=== PATIENT | male | born 1940 | race Caucasian/White ===

== ENCOUNTER → 2016-12-09 | Outpatient (CLI) | payer MEDICARE, BC ==
[~2016-12-09] MED LIST: ADULT LOW DOSE81 MG PO; AMBIEN10 MG PO; LISINOPRIL10 MG PO; LOPRESSOR 550 MG/TAB PO; LOSARTAN POTASS50 MG PO; LOVASTATIN40 M1 PO; ZYRTEC ALLERGY10 MG PO
[2016-12-09 10:31] VITALS: BP 164/93
== END ==
LOC: AMSURD 10:19
DX: R07.9 Chest pain, unspecified (principal)

== ENCOUNTER → 2017-01-25 | Outpatient (CLI) | payer MEDICARE, BC ==
[2016-12-09 10:31] VITALS: BP 164/93
== END ==
LOC: RAD 11:00
DX: L72.3 Sebaceous cyst (principal); L02.91 Cutaneous abscess, unspecified

== ENCOUNTER → 2017-03-09 | Outpatient (CLI) | payer MEDICARE, BC ==
[2016-12-09 10:31] VITALS: BP 164/93
== END ==
LOC: LAB 09:47
DX: E11.9 Type 2 diabetes mellitus without complications (principal); I10 Essential (primary) hypertension; Z12.5 Encounter for screening for malignant neoplasm of prostate; E78.2 Mixed hyperlipidemia

== ENCOUNTER → 2017-03-15 | Outpatient (CLI) | payer MEDICARE, BC ==
[2016-12-09 10:31] VITALS: BP 164/93
== END ==
LOC: LAB 09:38
DX: Z12.11 Encounter for screening for malignant neoplasm of colon (principal)

== ENCOUNTER 2017-03-16 16:18 | Emergency (ER) | payer MEDICARE, BC ==
[~2017-03-16] VITALS: Ht 167.6 cm; Wt 86.8 kg
[~2017-03-16 16:18] MED LIST changes: -ZYRTEC ALLERGY10 MG PO
[2017-03-16] MEDS ORDERED: ZYRTEC ALLERGY10 MG PO (16:29)
[2017-03-16 19:14] VITALS: BP 159/97
== END 2017-03-16 19:12 | disposition home or self-care (01) ==
LOC: ED 16:18
DX: M54.2 Cervicalgia (principal); M47.9 Spondylosis, unspecified; I10 Essential (primary) hypertension; Z95.1 Presence of aortocoronary bypass graft; I25.10 Atherosclerotic heart disease of native coronary artery without angina pectoris; I11.9 Hypertensive heart disease without heart failure

== ENCOUNTER → 2017-05-25 | Outpatient (CLI) | payer MEDICARE, BC ==
[~2017-05-25] MED LIST changes: +ZYRTEC ALLERGY10 MG PO
== END ==
LOC: RAD 15:06
DX: S92.351A Displaced fracture of fifth metatarsal bone, right foot, initial encounter for closed fracture (principal)

== ENCOUNTER 2018-10-07 15:05 | Emergency (ER) | payer MEDICARE, BC ==
[~2018-10-07] VITALS: Ht 167.6 cm; Wt 90.9 kg
[~2018-10-07 15:05] MED LIST changes: +GOOD SENSE ALLE10 MG PO; -LISINOPRIL10 MG PO; +LISINOPRIL20 MG PO; -ZYRTEC ALLERGY10 MG PO
[2018-10-07] MEDS ORDERED: ISOSORBIDE30 MG PO (15:29)
[2018-10-07] MEDS ORDERED: COLACE100 M1 PO (15:30)
[2018-10-07] MEDS ORDERED: OMEGA 3 1,0001 EACH PO (15:30)
[2018-10-07] MEDS ORDERED: VITAMIN D 400400 IU (15:32)
[2018-10-07] MEDS ORDERED: TESSALON PERLE100 M1 PO (15:35)
[2018-10-07 15:47] VITALS: BP 162/90
== END 2018-10-07 15:48 | disposition home or self-care (01) ==
LOC: ED 15:05
DX: J06.9 Acute upper respiratory infection, unspecified (principal); I25.10 Atherosclerotic heart disease of native coronary artery without angina pectoris; I10 Essential (primary) hypertension; Z95.1 Presence of aortocoronary bypass graft

== ENCOUNTER 2022-04-04 16:46 | Emergency (ER) | payer MEDICARE, OTHER ==
[~2022-04-04] VITALS: Ht 167.6 cm; Wt 80.8 kg
[~2022-04-04 16:46] MED LIST changes: +COLACE100 M1 PO; +ISOSORBIDE30 MG PO; +OMEGA 3 1,0001 EACH PO; +TESSALON PERLE100 M1 PO; +VITAMIN D 400400 IU
[2022-04-04] MEDS ORDERED: MIRTAZAPINE7.5 M1 PO (17:10)
[2022-04-04] MEDS ORDERED: PHARMASSURE ZIN50 MG PO (17:12)
[2022-04-04] MEDS ORDERED: DAILY VITAMIN1 EAC3 PO (17:12)
[2022-04-04] MEDS ORDERED: VITAMIN C PUR1000 MG PO (17:12)
[2022-04-04 17:33] LABS: BASO # 0.05 K/mm3 (0.02-0.10); EOS # 0.26 K/mm3 (0.04-0.40); EOS % 4.8 % (0.0-4.0); HEMOGLOBIN 13.7 g/dL (13.5-18.0); LYMPH# 1.69 K/mm3 (1.50-4.00); MEAN CELL VOLUME 94 fl (78-100); MEAN CORPUSCULAR HEMOGLOBIN 31 pg (27-31); MEAN CORPUSCULAR HGB CONC 33 g/dL (33-37); MEAN PLATELET VOLUME 8.9 fl (7.4-10.4); MONO # 0.44 K/mm3 (0.20-0.80); NEU # 3.01 K/mm3 (1.40-6.50); PLATELET COUNT 164 K/mm3 (130-400); RED BLOOD COUNT 4.36 M/mm3 (4.20-5.60); RED CELL DISTRIBUTION WIDTH 14.6 % (11.5-14.5); WHITE BLOOD COUNT 5.5 K/mm3 (4.8-10.8)
[2022-04-04 17:42] LABS: ALBUMIN 4.2 g/dL (3.4-4.8); POTASSIUM 4.3 mmol/L (3.5-5.1)
[2022-04-04 17:45] LABS: TOTAL PROTEIN 6.7 g/dL (6.2-8.1)
[2022-04-04 17:47] LABS: TOTAL BILIRUBIN 0.4 mg/dL (0.2-1.2)
[2022-04-04 17:48] LABS: CALCIUM 9.1 mg/dL (8.3-10.5)
[2022-04-04 18:02] LABS: TROPONIN-I 0.178 ng/mL (<0.030)
[2022-04-04 18:06] LABS: D-DIMER 0.65 mg/L FEU (0.15-0.50)
[2022-04-04 19:24] LABS: PARTIAL THROMBOPLASTIN TIME 24.5 SECONDS (21.0-32.0); PROTHROMBIN TIME 10.5 SECONDS (9.0-12.0)
[2022-04-04 20:07] VITALS: BP 144/80
== END 2022-04-04 20:07 | disposition short-term general hospital (02) ==
LOC: ED 16:46
PROVIDERS: Physician Assistant
DX: I21.4 Non-ST elevation (NSTEMI) myocardial infarction (principal); I10 Essential (primary) hypertension; E78.5 Hyperlipidemia, unspecified; M54.9 Dorsalgia, unspecified; Z95.1 Presence of aortocoronary bypass graft; Z20.822 Contact with and (suspected) exposure to COVID-19
CPT/HCPCS: J1644

== ENCOUNTER 2024-08-31 08:04 | Emergency (ER) | payer MEDICARE, OTHER ==
[~2024-08-31] VITALS: Ht 167.6 cm; Wt 80.9 kg
[~2024-08-31 08:04] MED LIST changes: +DAILY VITAMIN1 EAC3 PO; +MIRTAZAPINE7.5 M1 PO; +PHARMASSURE ZIN50 MG PO; +VITAMIN C PUR1000 MG PO
[2024-08-31] MEDS ORDERED: FLUTICASONE P15.8 ML NS (08:30)
[2024-08-31] MEDS ORDERED: BENZONATATE100 M2 PO (08:30)
[2024-08-31] MEDS ORDERED: Benzonatate 100 MG CAP PO ONE (08:30)
[2024-08-31 08:39] VITALS: BP 130/76
== END 2024-08-31 08:38 | disposition home or self-care (01) ==
LOC: ED 08:04
DX: R05.9 Cough, unspecified (principal); R09.82 Postnasal drip; Z95.5 Presence of coronary angioplasty implant and graft; Z96.653 Presence of artificial knee joint, bilateral; Z79.82 Long term (current) use of aspirin